=== PATIENT | male | born 1970 | race Caucasian/White ===

== ENCOUNTER → 2017-01-22 | Outpatient (CLI) | payer BC ==
--- NOTE | 2017-01-28 13:54 | EM ---
DATE OF SERVICE: AGE: 46Y SEX: M INDICATIONS: Patient in the diary indicated 3 or 4 episodes of palpitations. At the same time patient felt palpitations, he was in a sinus rhythm but on one occasion there was isolated PVC and the heart rate was about 65 to 70 beats per minute. The overall rhythm is predominantly sinus with a heart rate ranging from 52 to 153 beats per minute with average heart rate of 75 beats per minute. Rare isolated PACs and PVCs were noted without any significant evidence of bradyarrhythmias. There is no correlation of any arrhythmia with patient's perception of symptoms of palpitations. IMPRESSION: 1. Patient in his diary indicated four episodes of palpitations. 2. Predominant rhythm is sinus with average heart rate of 75 beats per minute. 3. There is no correlation of significant arrhythmia with patient's perception of palpation. On one occasion there was one isolated premature ventricular contraction. 4. There was no evidence of any ventricular ectopy of significance and there was no evidence of any bradyarrhythmia.
== END | disposition home or self-care (01) ==
LOC: RADECHMAIN 13:00
PROVIDERS: ATTEND Physician Assistant Medical
DX: R00.2 Palpitations (principal); I49.3 Ventricular premature depolarization
CPT/HCPCS: 93225; 93226

== ENCOUNTER 2021-11-21 09:16 | Day surgery (SDC) | payer BC ==
[2021-11-20 14:42] VITALS: BMI 29.0
[~2021-11-21 09:16] MED LIST: ALPRAZolam 0.25 MG TAB PO PRN; ALPRAZolam 0.5 MG TAB PO PRN; ASPIRIN 325 MG TAB PO STA; HEPARIN SODIUM,PORCINE 10,000 UNIT in SODIUM CHLORIDE 0.9% 1,000 ML IRRIGATION PRN; HEPARIN SODIUM,PORCINE 2,500 UNIT in SODIUM CHLORIDE 0.9% 250 ML IRRIGATION PRN; NITROGLYCERIN SL TABS 0.4 MG TAB SUBLINGUAL PRN
[2021-11-21] MEDS: SODIUM CHLORIDE 0.9% 1,000 ML in EMPTY BAG 1 BAG IV SCH ×2 (09:44→17:53)
[2021-11-21] MEDS ORDERED: VERAPAMIL 2.5 MG/ML 2 ML AMP ONE (09:47)
[2021-11-21] MEDS ORDERED: LIDOCAINE 1% INJ 10MG/ML (20 ML MDV) ONE (09:47)
[2021-11-21 09:54] LABS: Basophils % (A) 1 %; Eosinophils # (A) 0.2 k/uL (0-0.7); Eosinophils % (A) 3 %; HCT 50.6 % (39.0-53.0); HGB 17.7 gm/dL (13.0-17.5); Lymphocytes # (A) 2.4 k/uL (1.0-4.8); Lymphocytes % (A) 34 %; MCH 32.4 pg (25.0-35.0); MCHC 34.9 g/dL (31.0-37.0); MCV 92.9 fL (80.0-100.0); Mean Platelet Volume 8.8; Monocytes # (A) 0.5 k/uL (0-1.0); Monocytes % (A) 6 %; Neutrophils # (A) 3.8 k/uL (1.3-7.7); Neutrophils % (A) 53 %; Platelet Count 222 k/uL (150-450); RBC 5.45 m/uL (4.30-5.90); RDW 12.3 % (11.5-15.5); WBC 7.1 k/uL (3.8-10.6)
[2021-11-21 10:04] LABS: African American GFR (CKD) >90 (>60 ml/min/1.73 sqM); Anion Gap 9 mmol/L; Blood Urea Nitrogen 16 mg/dL (9-20); Calcium 9.4 mg/dL (8.4-10.2); Carbon Dioxide 27 mmol/L (22-30); Chloride 105 mmol/L (98-107); Glucose 113 mg/dL (74-99); Non-African American GFR(CKD) >90 (>60 ml/min/1.73 sqM); Potassium 4.2 mmol/L (3.5-5.1); Sodium 141 mmol/L (137-145)
[2021-11-21] MEDS ORDERED: HEPARIN SODIUM 1,000 UN/ML (10ML VL) ONE (10:19)
[2021-11-21] MEDS ORDERED: fentaNYL (PF) 50 MCG/ML 2 ML AMP ONE (10:19)
[2021-11-21] MEDS ORDERED: fentaNYL (PF) 50 MCG/ML 2 ML AMP IV ONE (10:23)
[2021-11-21] MEDS ORDERED: MIDAZOLAM 2 MG/2 ML VIAL IV ONE (10:24)
[2021-11-21] MEDS ORDERED: LIDOCAINE 1% INJ 10MG/ML (20 ML MDV) SQ ONE (10:25)
[2021-11-21] MEDS ORDERED: VERAPAMIL SYRINGE (5 MG/10 ML) INTRAARTER ONE (10:26)
[2021-11-21] MEDS: HEPARIN SODIUM 1,000 UN/ML (10ML VL) IV ONE ×2 (10:33→10:43)
[2021-11-21] MEDS ORDERED: PRASUGREL 10 MG TAB ONE (10:46)
[2021-11-21] MEDS ORDERED: PRASUGREL 10 MG TAB PO ONE (10:50)
[2021-11-21] MEDS ORDERED: NITROGLYCERIN 1000MCG/10ML SYRINGE INTRACORON ONE (10:57)
[2021-11-21] MEDS ORDERED: IOPAMIDOL-370 125ML BTL INJ ONE (10:59)
[2021-11-21] MEDS ORDERED: IOPAMIDOL-370 100ML BTL INJ ONE (11:32)
[2021-11-21] MEDS ORDERED: ZOLPIDEM 5 MG TAB PO PRN (11:43)
[2021-11-21] MEDS ORDERED: ATROPINE SULFATE 0.1 MG/ML 10ML SYRINGE IV PRN (11:43)
[2021-11-21] MEDS ORDERED: NITROGLYCERIN SL TABS 0.4 MG TAB SUBLINGUAL PRN (11:43)
[2021-11-21] MEDS ORDERED: MAG HYDROX/AL HYDROX/SIMETH 30 ML CUP PO PRN (11:43)
[2021-11-21] MEDS ORDERED: RX INFO: IV CONTRAST WAS GIVEN 1 EACH MISC MISCELLANE PRN (11:43)
[2021-11-21] MEDS ORDERED: SODIUM CHLORIDE 0.9% 1,000 ML in EMPTY BAG 1 BAG IV SCH (11:45)
--- NOTE | 2021-11-21 11:52 | P.CARDCATH ---
Date of Procedure: 11/21/21 Description of Procedure: Cardiac Catheterization: The patient is a 51-year-old male with known history of hyperlipidemia, untreated, hypertension who has been complaining of progressive exertional chest discomfort for the last 6 months. He had an abnormal EKG stress test. Recommendations were made regarding cardiac catheterization, the risks and the complications were discussed with the patient who is in full understanding and agreement. Procedure Description: Patient was brought to clinical lab clerk in fasting semi-sedated state after receiving Fentanyl and Benadryl achieiving moderate conscious sedated state. Using Xylocaine Anesthesia and Seldinger technique, a 6-Pakistani sheath was introduced in the right radial artery . Subsequently, selective coronary angiography performed using a 5-Pakistani 3-1/2 bend Joleen catheter. Multiple views of the coronary artery including hemiaxial views were obtained. The left Joleen catheter was used to cross the aortic valve and LVEDP was calculated. Following that, catheter were removed. . There was no immediate complication. Patient was returned to room in stable condition. Of note, the patient received a total of 5000 units of intravenous heparin as well as intra-arterial verapamil. There was no immediate complications. Findings: Fluoroscopy showed calcification of the LAD Left main: This is a large size vessel, bifurcating to LAD and left circumflex, left main has no high-grade stenosis LAD: This is a large size vessel, reaching to the apex, giving rise to 2 diagonal branch, the first one small in caliber the second one is moderate to 99% stenosis proximally. Proximal LAD has a 40-50% plaque after the takeoff of second diagonal branch there is a 99% stenosis, the rest of the vessel has no high-grade stenosis. Left circumflex: This is a large size vessel nondominant giving rise to a very proximal to his marginal branch that reaches to the apical lateral wall. That vessel has 40-50% plaque in the proximal and midsegment, the second obtuse marginal branch appears to be small in caliber and totally occluded with retrograde flow. RCA: This is a dominant vessel, has a 20 to 30% proximal, the midsegment is totally occluded with slow flow distally with area of stenosis up to 99%. There is competitive flow in the distal RCA. Collaterals: There is collaterals from the LAD to the PDA and PLV [Left] Ventriculogram: Was not performed Hemodynamics: There was no gradient across the aortic valve, LVEDP 16-20 mmHg Conclusion: 1. Calcified coronary arteries 2. Critical stenosis in the proximal and mid LAD as well as the second diagonal branch 3. Subtotally occluded mid and distal RCA 4. Chronically occluded second OM with moderate disease in the first OM Recommendations: I discussed with the patient both options of proceeding with angioplasty and stenting of the LAD and diagonal branch and a staged procedure to attempt stent ing and recanalization of the RCA versus CABG. He was in favor of proceeding with percutaneous intervention. The risks and the complications were discussed with the patient who is in full agreement and understanding.
--- NOTE | 2021-11-21 11:59 | P.CARDCATH ---
Date of Procedure: 11/21/21 Description of Procedure: PERCUTANEOUS TRANSLUMINAL CORONARY ANGIOPLASTY CLINICAL INFORMATION: The patient presents with progressive exertional angina pectoris and a positive stress test. He underwent cardiac catheterization that showed subtotal occlusion of the mid and distal RCA, critical stenosis in the LAD and first diagonal branch. Both options of PCI versus CABG was discussed with the patient as well as the risks and the complications. He was in agreement to proceed with PCI and stenting. PROCEDURE: A 6 [place] 3.75 EBU guiding catheter was introduced into the system. After cannulating the left main, a 0.014 balanced medium J-wire was advanced across the lesion and positioned distally. Following that another 0.014 balanced medium weight J-wire was advanced to the second diagonal branch and positioned distally. Following that 2.25 x 12 mm NC Treck was advanced into the diagonal branch and 2 inflations at 8 mitesh were done, subsequently the balloon was introduced in the LAD and one inflation at 10 mitesh was done. Following that a 2.25 x 12 stent was deployed in the diagonal branch and post dilated at 14 mitesh. After removing the balloon 3.25 x 33 mm jose manuel point Xience stent was deployed in the LAD. It was dilated at 16 mitesh. Following that a Flypay IVUS catheter was introduced and imaging were obtained. Following that a 3.5 x 12 mm NC Treck balloon was advanced and inflation in the proximal segment of the stent was done at 12 mitesh, after removing the balloon a 3.5 x 12 mm jose manuel point Xience stent was positioned proximal to the LAD stent and deployed at 16 mitesh. After that a repeat imaging with IVUS was done. After the last inflation, after appropriate wait, the balloon and the guidewire were withdrawn back into the guiding catheter. Images were obtained and repeated. Those images reveal stable successful stenting. At that point, the guiding catheter, the balloon, a nd guidewire were removed. The sheath was removed. Hemostasis was obtained with deployment of a TR band. There were no immediate complications. The patient was returned to the room in stable condition. Of note, the patient received 7000 units of heparin as well as loading dose of Effient. The patient had no chest discomfort but had EKG changes that resolved at the end of the procedure. His ACT was followed RESULTS: Successful stenting of the second diagonal branch with reduction of stenosis from 99 % to 0 %. Successful stenting of the proximal and mid LAD with reduction of the stenosis from 99% with 0% with ultrasound imaging RECOMMENDATIONS: The patient will be continued on dual antiplatelet treatment for one year in addition to aggressive coronary risks modifications. He will be scheduled to undergo a staged procedure to attempt to recanalize the RCA. The findings as well as the recommendations were discussed with the patient and his family. They were in full agreement and understanding. Duration of sedation 69 minutes.
[2021-11-21] MEDS: ISOSORBIDE MONONITRATE ER 30 MG TAB.ER.24H PO SCH (12:49)
[2021-11-21] MEDS ORDERED: ATORVASTATIN 40 MG TAB PO SCH (21:00)
[2021-11-21] MEDS: METOPROLOL TARTRATE 25 MG TAB PO SCH (21:36)
[2021-11-22] MEDS: SODIUM CHLORIDE 0.9% 1,000 ML in EMPTY BAG 1 BAG IV SCH (04:24)
[2021-11-22 07:37] LABS: African American GFR (CKD) >90 (>60 ml/min/1.73 sqM); Anion Gap 6 mmol/L; Blood Urea Nitrogen 15 mg/dL (9-20); Calcium 9.1 mg/dL (8.4-10.2); Carbon Dioxide 28 mmol/L (22-30); Chloride 104 mmol/L (98-107); Glucose 103 mg/dL (74-99); Non-African American GFR(CKD) >90 (>60 ml/min/1.73 sqM); Potassium 4.6 mmol/L (3.5-5.1); Sodium 138 mmol/L (137-145)
[2021-11-22 07:43] VITALS: RESP 20; TEMP 97.5
[2021-11-22] MEDS: ISOSORBIDE MONONITRATE ER 30 MG TAB.ER.24H PO SCH (08:37)
[2021-11-22] MEDS: METOPROLOL TARTRATE 25 MG TAB PO SCH (08:37)
[2021-11-22 08:44] VITALS: BP 108/68
[2021-11-22] MEDS ORDERED: ASPIRIN 81 MG PO SCH (09:00)
[2021-11-22] MEDS ORDERED: PRASUGREL 10 MG TAB PO SCH (09:00)
--- NOTE | 2021-11-22 10:07 | P.DS ---
Providers Attending physician: Ferny Castañeda Consults: 11/21/21 11:44 Consult Physician Routine Consulting Provider: [facility] Consult Reason/Comments: Post Interventional patient Do you want consulting provider notified?: Already Contacted Primary care physician: Marina Gtz MD Hospital Course: This is a 51 year old male with hypertension, dyslipidemia, family history of premature CAD. Admitted to the hospital by Dr. Castañeda. He presents to the hospital for planned left heart catheterization with Dr. Castañeda. Patient initially presented to the office to see Dr. Castañeda due to chest discomfort. He underwent a regular stress test on 11/19/2021, he walked for 7 minutes and had [address] segment depression with minimal discomfort. Echocardiogram was performed and left heart catheterization was recommended. Patient underwent cardiac catheterization on 11/21/2021 which revealed calcified coronary arteries, critical stenosis in the proximal mid LAD as well as the second diagonal branch, subtotally occluded mid and distal RCA, chronically occluded second OM with moderate disease in the first OM. Patient underwent successful PCI to the second diagonal branch, proximal and mid LAD on 11/21/2021. Patient seen and examined at bedside, with at bedside. He denies any chest pain or shortness of breath. Right radial cardiac catheterization site is clean dry, intact, no bleeding, no hematoma, 2+ peripheral pulses. He's currently maintained on aspirin 81 mg daily, atorvastatin 40 mg daily, metoprolol tartrate 25 mg twice a day, Effient 10 mg daily, Imdur 30 mg daily PHYSICAL EXAMINATION: Patient's vital signs are stable, blood pressure 108/60, heart rate 61, afebrile, saturations 90% on room air HEART: S1, S2 normal. LUNGS: Clear to auscultation. NECK: Supple. ABDOMEN: Soft. EXTREMITIES: 2+ peripheral pulses. LAB DATA: Sodium 138, potassium 4.6, BUN 15, serum creatinine 0.9 FINAL IMPRESSION: 1. Coronary artery disease status post PCI to the second diagonal branch, proximal and mid LAD on 11/21/2021 2. History of hypertension 3. Hyperlipidemia 4. Family history of premature CAD PLAN: Patient may be able to be discharged home today. Prescription for Imdur and Effient sent. We will make him a follow-up appointment with Dr. Castañeda. He will seen Dr. Castañeda on 11/25/2021. 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 Plan - Discharge Summary Discharge Rx Participant: No New Discharge Prescriptions: New Isosorbide Mononitrate ER [Imdur] 30 mg PO DAILY 30 Days #30 tablet Prasugrel [Effient] 10 mg PO DAILY 30 Days #30 tab Continue Aspirin [Adult Low Dose Aspirin EC] 81 mg PO DAILY Atorvastatin [Lipitor] 40 mg PO DAILY Metoprolol Tartrate [Lopressor] 25 mg PO BID Discharge Medication List Aspirin [Adult Low Dose Aspirin EC] 81 mg PO DAILY 11/20/21 [History] Metoprolol Tartrate [Lopressor] 25 mg PO BID 11/20/21 [History] Atorvastatin [Lipitor] 40 mg PO DAILY 11/21/21 [History] Isosorbide Mononitrate ER [Imdur] 30 mg PO DAILY 30 Days #30 tablet 11/22/21 [Rx] Prasugrel [Effient] 10 mg PO DAILY 30 Days #30 tab 11/22/21 [Rx] Follow up Appointment(s)/Referral(s): Ferny Castañeda MD [STAFF PHYSICIAN] - 11/25/21 9:00 am Patient Instructions/Handouts: Heart Healthy Diet (ED), After Radial Heart Catheterization (GEN), Procedural Sedation (ED), Left Heart Catheterization (DC)
[2021-11-22 10:19] VITALS: PULSE 43
== END 2021-11-22 10:21 | disposition home or self-care (01) ==
LOC: CATHCVL 09:16 → 6NMEDSUR 12:20 → CATHCVL 11-22 10:21
PROVIDERS: ATTEND Internal Medicine Interventional Cardiology
DX: I25.10 Atherosclerotic heart disease of native coronary artery without angina pectoris (principal); I10 Essential (primary) hypertension; E78.5 Hyperlipidemia, unspecified; Z82.49 Family history of ischemic heart disease and other diseases of the circulatory system; Z20.822 Contact with and (suspected) exposure to COVID-19
CPT/HCPCS: 93458; 80048 ×2; 85025; 87635; C9600; C9601; C1769 ×2; C1887; C1894; C1725 ×2; C1753; C1874 ×4; J2250; J2001; J3010; J1644; Q9967 ×2

== ENCOUNTER 2021-12-05 05:49 | Day surgery (SDC) | payer BC ==
[2021-12-03 09:26] VITALS: BMI 27.6
[2021-12-05] MEDS ORDERED: ALPRAZolam 0.25 MG TAB PO PRN (05:58)
[2021-12-05] MEDS ORDERED: SODIUM CHLORIDE 0.9% 1,000 ML in EMPTY BAG 1 BAG IV SCH ×2 (05:58→09:00)
[2021-12-05] MEDS ORDERED: HEPARIN SODIUM,PORCINE 10,000 UNIT in SODIUM CHLORIDE 0.9% 1,000 ML IRRIGATION PRN (05:58)
[2021-12-05] MEDS ORDERED: NITROGLYCERIN SL TABS 0.4 MG TAB SUBLINGUAL PRN ×2 (05:58→08:50)
[2021-12-05] MEDS ORDERED: ALPRAZolam 0.5 MG TAB PO PRN (05:58)
[2021-12-05] MEDS ORDERED: HEPARIN SODIUM,PORCINE 2,500 UNIT in SODIUM CHLORIDE 0.9% 250 ML IRRIGATION PRN (05:58)
[2021-12-05] MEDS ORDERED: SODIUM CHLORIDE 0.9% 1,000 ML IV ONE (06:19)
[2021-12-05 06:37] VITALS: RESP 16; TEMP 98
[2021-12-05 06:45] LABS: Basophils # (A) 0.1 k/uL (0-0.2); Basophils % (A) 1 %; Eosinophils # (A) 0.3 k/uL (0-0.7); Eosinophils % (A) 4 %; HCT 46.2 % (39.0-53.0); HGB 16.1 gm/dL (13.0-17.5); Lymphocytes # (A) 2.2 k/uL (1.0-4.8); Lymphocytes % (A) 33 %; MCH 31.9 pg (25.0-35.0); MCHC 34.8 g/dL (31.0-37.0); MCV 91.7 fL (80.0-100.0); Mean Platelet Volume 9.4; Monocytes # (A) 0.5 k/uL (0-1.0); Monocytes % (A) 8 %; Neutrophils # (A) 3.5 k/uL (1.3-7.7); Neutrophils % (A) 53 %; Platelet Count 218 k/uL (150-450); RBC 5.04 m/uL (4.30-5.90); RDW 11.4 % (11.5-15.5); WBC 6.7 k/uL (3.8-10.6)
[2021-12-05] MEDS ORDERED: ASPIRIN 325 MG TAB PO ONE (07:00)
[2021-12-05 07:24] LABS: African American GFR (CKD) >90 (>60 ml/min/1.73 sqM); Anion Gap 7 mmol/L; Blood Urea Nitrogen 15 mg/dL (9-20); Calcium 9.1 mg/dL (8.4-10.2); Carbon Dioxide 26 mmol/L (22-30); Chloride 107 mmol/L (98-107); Glucose 113 mg/dL (74-99); Non-African American GFR(CKD) >90 (>60 ml/min/1.73 sqM); Potassium 4.3 mmol/L (3.5-5.1); Sodium 140 mmol/L (137-145)
[2021-12-05] MEDS ORDERED: VERAPAMIL 2.5 MG/ML 2 ML AMP ONE (07:30)
[2021-12-05] MEDS ORDERED: fentaNYL (PF) 50 MCG/ML 2 ML AMP ONE (07:30)
[2021-12-05] MEDS ORDERED: HEPARIN SODIUM 1,000 UN/ML (10ML VL) ONE (07:30)
[2021-12-05] MEDS ORDERED: LIDOCAINE 1% INJ 10MG/ML (20 ML MDV) ONE (07:30)
[2021-12-05] MEDS ORDERED: fentaNYL (PF) 50 MCG/ML 2 ML AMP IV ONE (07:36)
[2021-12-05] MEDS ORDERED: LIDOCAINE 1% INJ 10MG/ML (20 ML MDV) SQ ONE (07:39)
[2021-12-05] MEDS ORDERED: VERAPAMIL SYRINGE (5 MG/10 ML) INTRAARTER ONE (07:41)
[2021-12-05] MEDS ORDERED: HEPARIN SODIUM 1,000 UN/ML (10ML VL) IV ONE (07:44)
[2021-12-05] MEDS ORDERED: NITROGLYCERIN 1000MCG/10ML SYRINGE INTRACORON ONE (08:14)
[2021-12-05] MEDS ORDERED: IOPAMIDOL-370 125ML BTL INJ ONE (08:15)
[2021-12-05] MEDS ORDERED: IOPAMIDOL-370 100ML BTL INJ ONE (08:41)
[2021-12-05] MEDS ORDERED: RX INFO: IV CONTRAST WAS GIVEN 1 EACH MISC MISCELLANE PRN (08:50)
[2021-12-05] MEDS ORDERED: ATROPINE SULFATE 0.1 MG/ML 10ML SYRINGE IV PRN (08:50)
[2021-12-05] MEDS ORDERED: ZOLPIDEM 5 MG TAB PO PRN (08:50)
[2021-12-05] MEDS ORDERED: MAG HYDROX/AL HYDROX/SIMETH 30 ML CUP PO PRN (08:50)
--- NOTE | 2021-12-05 09:02 | P.CARDCATH ---
Date of Procedure: 12/05/21 Description of Procedure: PERCUTANEOUS TRANSLUMINAL CORONARY ANGIOPLASTY CLINICAL INFORMATION: The patient is a 51-year-old male who recently presented with symptoms of angina pectoris, had an abnormal stress test and underwent cardiac catheterization was found to have severe obstructive disease in the LAD and diagonal branch and underwent stenting of those vessels 2 weeks ago. This same time was found to have chronically occluded RCA. Recommendations were made regarding attempt to recanalize the RCA, the procedure as well as the risks and the complications were discussed with the patient and he was informed agreement and understanding. PROCEDURE: The patient was brought to the cook house laborer in the fasting and semi- sedated state after receiving fentanyl and Benadryl. Using Xylocaine anesthesia in the Seldinger technique, a 6-Wolof sheath was introduced in the right radial artery. A 6 [place] 0.75 guiding catheter was introduced into the system. After cannulating the right coronary ostium, attempt to advance a 0.014 balanced medium J-wire was unsuccessful. The wire was removed and a 0.014 whisper J-wire with the help of a straight supra across was advanced across the lesion and positioned distally. The supra across was removed and a 1.0 x 8 mm Sapphire balloon was advanced and multiple inflations at 10 mitesh were done . Following that a 2.0 x 12 mm Treck balloon was advanced and inflation at 8 mitesh were done and after removing the balloon a 2.5 x 12 mm NC Treck balloon was advanced and inflation at 10 mitesh were done. The wire was exchanged through the microcatheter to 0 balanced medium J-wire. Following that an [place] eye IVUS catheter was introduced and images were obtained. Following that a 3.0 x 38 mm Xience jose manuel point stent was deployed. It was dilated at 16. After removing the balloon 3.25 x 12 mm Xience jose manuel point stent was advanced proximal to the first one and post dilated at 16 mitesh. Following that repeat ultrasound imaging were obtained. After that is 3.75 x 15 mm NC Treck balloon was advanced and multiple inflation at a maximum of 12 mitesh were done. After the last inflation, after appropriate wait, the balloon and the guidewire were withdrawn back into the guiding catheter. Images were obtained and repeated. Those images reveal stable successful stenting. At that point, the guiding catheter, the balloon, and guidewire were removed. The sheath was removed. Hemostasis was obtained with deployment for TR band. There were no immediate complications. The patient was returned to the room in stable condition. Of note, the patient received thousand units of heparin and continued on Effient. His ACT was monitored. He had no significant EKG changes or chest discomfort daily inflations. RESULTS: Successful stenting of the mid RCA with reduction of stenosis from 100 % to 0 %. RECOMMENDATIONS: The patient will be continued on dual antiplatelet treatment for 6-12 months, the findings and recommendations were discussed with the patient and his family in full understanding and agreement. Duration of sedation 65 minutes.
[2021-12-05 13:27] VITALS: BP 90/53; PULSE 77
[2021-12-05] MEDS ORDERED: METOPROLOL TARTRATE 25 MG TAB PO SCH (21:00)
[2021-12-05] MEDS ORDERED: ISOSORBIDE MONONITRATE ER 30 MG TAB.ER.24H PO SCH (21:00)
[2021-12-05] MEDS ORDERED: ATORVASTATIN 40 MG TAB PO SCH (21:00)
[2021-12-06] MEDS ORDERED: PRASUGREL 10 MG TAB PO SCH (09:00)
[2021-12-06] MEDS ORDERED: ASPIRIN 81 MG PO SCH (09:00)
== END 2021-12-05 12:45 | disposition home or self-care (01) ==
LOC: CATHCVL 05:49
PROVIDERS: ATTEND Internal Medicine Interventional Cardiology
DX: I25.119 Atherosclerotic heart disease of native coronary artery with unspecified angina pectoris (principal); I10 Essential (primary) hypertension; E78.2 Mixed hyperlipidemia; Z95.5 Presence of coronary angioplasty implant and graft; Z20.822 Contact with and (suspected) exposure to COVID-19; Z79.82 Long term (current) use of aspirin; Z79.899 Other long term (current) drug therapy; Z88.0 Allergy status to penicillin; Z87.891 Personal history of nicotine dependence; Z82.49 Family history of ischemic heart disease and other diseases of the circulatory system
CPT/HCPCS: 92978; 80048; 85025; 87635; C9600; C1769 ×2; C1887 ×2; C1725 ×4; C1753; C1874 ×2; J2001; J3010; J1644; Q9967 ×2

== ENCOUNTER → 2022-01-06 | Outpatient (CLI) | payer BC ==
[2022-01-06 15:05] LABS: ALT 59 U/L (10-49); AST 43 U/L (14-35); Chol/HDL Ratio 3.06 Ratio; LDL Cholesterol,Calculated 52.9 mg/dL (0.0-131.0); VLDL Calculation 16.44 mg/dL (5.00-40.00)
== END | disposition home or self-care (01) ==
LOC: LABWHC1 10:31
PROVIDERS: ATTEND Internal Medicine Interventional Cardiology
DX: E78.2 Mixed hyperlipidemia (principal)
CPT/HCPCS: 36415; 80061; 84450; 84460

== ENCOUNTER → 2023-07-18 | Outpatient (CLI) | payer BC ==
[2023-07-18 13:43] LABS: ALT 55 U/L (10-49); AST 46 U/L (14-35); Chol/HDL Ratio 3.05 Ratio; LDL Cholesterol,Calculated 95.3 mg/dL (0.0-131.0)
== END | disposition home or self-care (01) ==
LOC: LABWHC1 08:57
PROVIDERS: ATTEND Internal Medicine Interventional Cardiology
DX: E78.2 Mixed hyperlipidemia (principal)
CPT/HCPCS: 36415; 80061; 84450; 84460

== ENCOUNTER → 2023-11-21 | Outpatient (CLI) | payer BC ==
[2023-11-21 13:25] LABS: Chol/HDL Ratio 2.44 Ratio; LDL Cholesterol,Calculated 60.7 mg/dL (0.0-131.0); VLDL Calculation 10.24 mg/dL (5.00-40.00)
[2023-11-21 13:26] LABS: ALT 70 U/L (10-49); AST 55 U/L (14-35)
== END | disposition home or self-care (01) ==
LOC: LABWHC1 09:11
PROVIDERS: ATTEND Internal Medicine Interventional Cardiology
DX: E78.2 Mixed hyperlipidemia (principal)
CPT/HCPCS: 36415; 80061; 84450; 84460

== ENCOUNTER → 2024-03-05 | Outpatient (CLI) | payer BC ==
[2024-03-05 23:54] LABS: Basophils # (A) 0.04 X 10*3/uL (0.00-0.10); Basophils % (A) 0.6 %; Eosinophils % (A) 1.4 %; HCT 49.1 % (39.6-50.0); HGB 16.7 g/dL (13.0-17.0); Lymphocytes # (A) 1.96 X 10*3/uL (0.90-5.00); Lymphocytes % (A) 27.8 %; MCH 31.6 pg (27.0-32.0); MCV 92.8 FL (80.0-97.0); Mean Platelet Volume 11.5 FL (9.5-12.2); Monocytes # (A) 1.04 X 10*3/uL (0.20-1.00); Monocytes % (A) 14.8 %; NRBC Per 100 WBC 0 X 10*3/uL (0.00-0.01); Neutrophils # (A) 3.89 X 10*3/uL (1.80-7.70); Neutrophils % (A) 55.3 %; Platelet Count 189 X 10*3/uL (140-440); RBC 5.29 X 10*6/uL (4.40-5.60); RDW 12.1 % (11.5-14.5); WBC 7.04 X 10*3/uL (4.50-10.00)
[2024-03-06 08:45] LABS: LDL Cholesterol,Calculated 103.7 mg/dL (0.0-131.0)
[2024-03-06 09:14] LABS: Creatine Kinase 188 U/L (35-257); T4, Free (Free Thyroxine) 1.46 ng/dL (0.80-1.80)
== END | disposition home or self-care (01) ==
LOC: LABWHC1 11:05
PROVIDERS: ATTEND Family Medicine
DX: Z00.00 Encounter for general adult medical examination without abnormal findings (principal); Z12.5 Encounter for screening for malignant neoplasm of prostate; E78.5 Hyperlipidemia, unspecified; M10.9 Gout, unspecified
CPT/HCPCS: 36415; 80053; 80061; 82550; 83036; 84153; 84439; 84443; 84550; 85025; 86141

== ENCOUNTER → 2024-03-12 | Outpatient (CLI) | payer BC ==
[2024-03-12 13:03] LABS: BUN/Creat Ratio 16.33 Ratio (12.00-20.00); Blood Urea Nitrogen 14.7 mg/dL (9.0-27.0); Chloride 102 mmol/L (96-109); Glucose 114 mg/dL (70-110); Potassium 4.2 mmol/L (3.5-5.5); Sodium 140 mmol/L (135-145)
[2024-03-12 13:04] LABS: ALT 42 U/L (10-49); AST 40 U/L (14-35); Albumin 4.6 g/dL (3.8-4.9); Albumin/Globulin Ratio 2.19 Ratio (1.60-3.17); Alkaline Phosphatase 47 U/L (41-126); Calcium 9.7 mg/dL (8.7-10.3); Globulin 2.1 g/dL (1.6-3.3); Total Protein 6.7 g/dL (6.2-8.2)
== END | disposition home or self-care (01) ==
LOC: LABWHC1 08:58
PROVIDERS: ATTEND Family Medicine
DX: Z00.00 Encounter for general adult medical examination without abnormal findings (principal); E78.5 Hyperlipidemia, unspecified
CPT/HCPCS: 36415; 80053

== ENCOUNTER → 2024-07-09 | Outpatient (CLI) | payer BC ==
[2024-07-09 13:31] LABS: ALT 37 U/L (10-49); AST 42 U/L (14-35); Chol/HDL Ratio 3.28 Ratio; LDL Cholesterol,Calculated 101.2 mg/dL (0.0-131.0); VLDL Calculation 11.38 mg/dL (5.00-40.00)
== END | disposition home or self-care (01) ==
LOC: LABWHC1 09:36
PROVIDERS: ATTEND Nurse Practitioner Adult Health
DX: E78.2 Mixed hyperlipidemia (principal)
CPT/HCPCS: 36415; 80061; 84450; 84460